=== PATIENT | female | born 1990 | race American Indian/Alaskan Native ===

== ENCOUNTER 2021-07-11 10:23 | Outpatient (CLI) | payer OTHER ==
[2021-07-11 11:00] VITALS: BP 126/58
== END 2021-07-11 11:34 | disposition home or self-care (01) ==
LOC: TRG 10:23 → APU 10:23 → TRG 11:34
PROVIDERS: ATTEND Obstetrics & Gynecology
DX: Z34.92 Encounter for supervision of normal pregnancy, unspecified, second trimester (principal); Z3A.22 22 weeks gestation of pregnancy
CPT/HCPCS: 59025

== ENCOUNTER 2021-07-11 11:49 | Emergency (ER) | payer OTHER ==
[2021-07-11 13:33] LABS: Alanine Aminotransferase 62 units/L (7-56); Albumin 3.7 g/dL (3.9-5); Blood Urea Nitrogen 7 mg/dL (7-17); Calcium 8.4 mg/dL (8.4-10.2); Hemolysis Index 0
[2021-07-11 13:36] LABS: Basophils % (Auto) 0.2 % (0.0-1.8); Eosinophils % (Auto) 0.1 % (0.0-4.3); Hematocrit 28.2 % (30.3-42.9); Hemoglobin 9.7 gm/dl (10.1-14.3); Lymphocytes # (Auto) 0.9 K/mm3 (1.2-5.4); Lymphocytes % (Auto) 8.3 % (13.4-35.0); Mean Corpuscular HGB Conc 34 % (30-34); Mean Corpuscular Volume 83 fl (79-97); Monocytes # (Auto) 0.3 K/mm3 (0.0-0.8); Monocytes % (Auto) 2.4 % (0.0-7.3); Platelet Count 366 K/mm3 (140-440); Red Blood Count 3.42 M/mm3 (3.65-5.03); Red Cell Distribution Width 13.6 % (13.2-15.2)
[2021-07-11] MEDS ORDERED: SODIUM CHLORIDE 0.9% 1000 ML 1,000 ML IV ONE (13:41)
[2021-07-11] MEDS ORDERED: ACETAMINOPHEN 500 MG TAB PO ONE (13:42)
[2021-07-11] MEDS ORDERED: ONDANSETRON 4 MG/2 ML INJ IV ONE (13:42)
[2021-07-11 13:44] LABS: BUN/Creatinine Ratio 18
[2021-07-11 14:09] LABS: Amorphous Crystals,Urine 1+; Bilirubin,Urine NEG (Negative); Blood,Urine NEG (Negative); Color,Urine Amber (Yellow); Mucus,Urine 3+ /HPF; Urobilinogen,Urine < 2.0 mg/dL (<2.0)
--- NOTE | 2021-07-11 14:22 | Emergency Department Report ---
ED N/V/D HPI - General Chief complaint: Nausea/Vomiting/Diarrhea Stated complaint: PAIN CHEST/VOMITING Source: patient, family Mode of arrival: Wheelchair Limitations: No Limitations - History of Present Illness Initial comments: 22-week OB patient Para 0 A0 sent from OB with complaint nausea after eating [place] foodx 2 days ago. Patient complaining of epigastric pain. She states that eating spicy food causes her to be very nauseated x1 day. Patient denies any abdominal pain vaginal bleed ,chest pain or shortness of breath. Patient is alert and oriented x3. No acute distress noted. No ill appearance noted. Patient given normal saline 1 L and Zofran 4 mg IV. Patient stated no further nausea at the time of discharge. Rechecked the patient is resting quietly quietly and comfortable and feeling better. I discussed the results of diagnostic study, my clinical impression and the plan for further treatment with the patient. Patient agrees with plan and discharge at this present time. All question addressed. I have given the patient instruction regarding a diagnosis ,expectation ,follow- up and return precaution. I explained to the patient that emergent condition may arise and to return to the ED for new worsen and any new persisting condition. I have explained the importance of following up with the primary care physician or referral physician listed below has instructed. The patient verbalized understanding of discharge instruction. - Related Data Previous Rx's Medication Instructions Recorded Last Taken Type Ondansetron (Nf) [Zofran TAB] 8 mg PO Q8HR PRN 3 Days #12 tablet 07/11/21 Unknown Rx Allergies Allergy/AdvReac Type Severity Reaction Status Date / Time No Known Allergies Allergy Verified 07/11/21 13:14 ED Review of Systems ROS: Stated complaint: PAIN CHEST/VOMITING Other details as noted in HPI Constitutional: denies: chills, fever Eyes: denies: eye pain, eye discharge, vision change ENT: denies: ear pain, throat pain Respiratory: denies: cough, shortness of breath, wheezing Cardiovascular: denies: chest pain, palpitations Endocrine: no symptoms reported Gastrointestinal: nausea. denies: abdominal pain, diarrhea Genitourinary: denies: urgency, dysuria, discharge Musculoskeletal: denies: back pain, joint swelling, arthralgia Skin: denies: rash, lesions Neurological: denies: headache, weakness, paresthesias Psychiatric: denies: anxiety, depression Hematological/Lymphatic: denies: easy bleeding, easy bruising ED Past Medical Hx - Past Medical History Previous Medical History?: Yes Hx Hypertension: No Hx Diabetes: No Hx Deep Vein Thrombosis: No Hx Renal Disease: No Hx Sickle Cell Disease: No Hx Seizures: No Hx Asthma: No - Surgical History Past Surgical History?: No - Social History Smoking Status: Never Smoker - Medications Home Medications: Home Medications Medication Instructions Recorded Confirmed Last Taken Type Ondansetron (Nf) [Zofran TAB] 8 mg PO Q8HR PRN 3 Days #12 tablet 07/11/21 Unknown Rx ED Physical Exam - General Limitations: No Limitations General appearance: alert, in no apparent distress - Head Head exam: Present: atraumatic, normocephalic - Eye Eye exam: Present: normal appearance - ENT ENT exam: Present: mucous membranes moist - Neck Neck exam: Present: normal inspection - Respiratory Respiratory exam: Present: normal lung sounds bilaterally. Absent: respiratory distress - Cardiovascular Cardiovascular Exam: Present: regular rate, normal rhythm. Absent: systolic murmur, diastolic murmur, rubs, gallop - GI/Abdominal GI/Abdominal exam: Present: soft, normal bowel sounds - Extremities Exam Extremities exam: Present: normal inspection - Back Exam Back exam: Present: normal inspection - Neurological Exam Neurological exam: Present: alert, oriented X3 - Psychiatric Psychiatric exam: Present: normal affect, normal mood - Skin Skin exam: Present: warm, dry, intact, normal color. Absent: rash ED Course Vital Signs 07/11/21 07/11/21 07/11/21 12:26 13:07 15:36 Temperature 98.7 F 98.8 F Pulse Rate 82 80 Respiratory 20 20 Rate Blood Pressure 128/61 128/81 [Right] O2 Sat by Pulse 100 99 100 Oximetry ED Medical Decision Making - Lab Data Result diagrams: 07/11/21 12:45 07/11/21 12:45 - Medical Decision Making 22-week OB patient Para 0 A0 sent from OB with complaint nausea after eating [place] foodx 2 days ago. Patient complaining of epigastric pain. She states that eating spicy food causes her to be very nauseated x1 day. Patient denies any abdominal pain vaginal bleed ,chest pain or shortness of breath. Patient is alert and oriented x3. No acute distress noted. No ill appearance noted. Critical care attestation.: If time is entered above; I have spent that time in minutes in the direct care of this critically ill patient, excluding procedure time. ED Disposition Clinical Impression: Nausea Disposition: 01 HOME / SELF CARE / HOMELESS Is pt being admited?: No Does the pt Need Aspirin: No Condition: Stable Instructions: Nausea and Vomiting, Adult, [id number] Additional Instructions: Follow-up with Dr. Gomez [facility] as previous schedule Return to the ED for any worsening symptom Take vitamin with iron Prescriptions: Ondansetron (Nf) [Zofran TAB] 8 mg PO Q8HR PRN 3 Days #12 tablet PRN Reason: Nausea Referrals: [facility] [Provider Group] - 3-5 Days Forms: Work/School Release Form(ED) Time of Disposition: 15:17
[2021-07-11 16:22] VITALS: BP 128/81
== END 2021-07-11 15:37 | disposition home or self-care (01) ==
LOC: ED 11:49
DX: R11.0 Nausea (principal)
CPT/HCPCS: 36415; 59025; 80053; 81001; 83690; 85025; 96361; 96374; 99283; J2405; J7030

== ENCOUNTER 2021-07-14 02:00 | Emergency (ER) | payer OTHER ==
[2021-07-14 03:01] VITALS: BP 126/61
== END 2021-07-14 08:00 | disposition left against medical advice (07) ==
LOC: ED 02:00
DX: R07.9 Chest pain, unspecified (principal); Z53.21 Procedure and treatment not carried out due to patient leaving prior to being seen by health care provider
CPT/HCPCS: 93005